=== PATIENT | female | born 1980 | race Caucasian/White ===

== ENCOUNTER 2018-10-21 00:47 | Emergency (ER) | payer OTHER ==
--- NOTE | 2018-10-21 00:57 | PDOC ---
History of Present Illness - General Chief Complaint: Diarrhea Stated Complaint: DIARRHEA Time Seen by Provider: 10/21/18 00:49 - History of Present Illness Initial Comments: This 38-year-old woman with a history of hypertension but no other significant medical issues presents with 10 day history of watery stools. Patient and her sister were visiting [place] until about 10 days ago. As they were leaving [place], and she began to have watery brown stool which continues intermittently. The patient had been eating and drinking in many different establishments in [place] . She denies blood or mucus in the stools. She has not had vomiting or fever/chills. She states that her abdomen is "sore" but she has not had severe abdominal pain during this illness. She states that intermittently in the last 10 days, her stools have begun to "thicken up" but as soon as she begins eating food, diarrhea begins again. No history of previous chronic diarrhea or other digestive issues. Her sister also had similar symptoms but diarrhea has largely resolved. Past medical history significant for hypertension that has been difficult to control. Patient states that she is compliant with her current dosage of amlodipine. She states that she is due for follow-up evaluation with her PMD for recheck of her BP and possible change in medication Past History - Past Medical History Allergies/Adverse Reactions: Allergies Allergy/AdvReac Type Severity Reaction Status Date / Time No Known Allergies Allergy Verified 04/11/15 20:59 Home Medications: Ambulatory Orders Amlodipine Besylate [Norvasc -] 10 mg PO DAILY 04/11/15 Azithromycin [Zithromax Tri-Jj (3 DAYS) -] 500 mg PO DAILY #3 tablet 10/21/18 HTN: Yes - Immunization History Immunization Up to Date: Yes - Suicide/Smoking/Psychosocial Hx Smoking Status: No Smoking History: Never smoked Number of Cigarettes Smoked Daily: 0 Hx Alcohol Use: Yes (social) Substance Use Type: None Review of Systems - Review of Systems Able to Perform ROS?: Yes Comments:: 12 point review of systems is negative except for what is noted in the history of present illness *Physical Exam - Physical Exam Comments: GENERAL: Adult female, alert and oriented 3, in no acute distress HEAD: Normal with no signs of trauma. EYES: PERRLA, EOMI, sclera anicteric, conjunctiva clear. ENT: Ears normal, nares patent, oropharynx clear without exudates. Dry mucous membranes. NECK: Normal range of motion, supple without lymphadenopathy, JVD, or masses. LUNGS: Breath sounds equal, clear to auscultation bilaterally. No wheezes, and no crackles. HEART:Regular rate and rhythm, normal S1 and S2 without murmur, rub or gallop. ABDOMEN:.normal bowel sounds . Mild generalized tenderness. No guarding or rebound.No masses No distention. EXTREMITIES: Normal range of motion, no edema. No clubbing or cyanosis. No erythema, or tenderness. NEUROLOGICAL: Cranial nerves II through XII grossly intact. Normal speech. No focal neurological deficits. MUSCULOSKELETAL: Back non-tender to palpation, no CVA tenderness SKIN: Warm, Dry, normal turgor, no rashes or lesions noted. Progress Note - Progress Note Progress Note: This 38-year-old woman presents with 10 day history of watery stools; notable and history is visit to [place] just prior to onset of current illness. No blood/mucus in stools and patient does not appear toxic. Exam notable for dry mucous membranes but patient is alert and in no acute distress. Abdomen is mildly tender throughout without evidence of rebound or guarding. History consistent with travelers diarrhea. Patient will be started on azithromycin 500 mg daily for 3 days. First dose given here in the emergency room. Patient also will continue drinking plenty of clear liquids that she has been trying to do. Also, patient has not been using Imodium/Kaopectate or other OTC antidiarrheal medication. She has been advised to use this along with the antibiotics. Patient should refrain from returning to a full diet until stools are firm for a few days. She should follow-up with her general doctor for follow-up on the diarrhea as well as her blood pressure control. She should return to the ER if she has high fever/increasing abdominal pain/ lateral mucus in her stools *DC/Admit/Observation/Transfer Diagnosis at time of Disposition: Diarrhea Qualifiers: Diarrhea type: presumed infectious Qualified Code(s): R19.7 - Diarrhea, unspecified - Discharge Dispostion Disposition: HOME Condition at time of disposition: Stable - Prescriptions Prescriptions: Azithromycin [Zithromax Tri-Jj (3 DAYS) -] 500 mg PO DAILY #3 tablet - Referrals - Patient Instructions Printed Discharge Instructions: Traveler's Diarrhea Additional Instructions: Continue drinking plenty of fluids Azithromycin 500 mg daily for the next 3 days You can use Imodium/Kaopectate/Pepto-Bismol as needed Continue limited diet (soup initially then simple starchy foods as tolerated) Follow-up with your doctor as scheduled Return to ER if you have blood in your stool/severe abdominal pain/fever - Post Discharge Activity
[2018-10-21 00:58] VITALS: BP 169/110; PULSE 67; TEMP 98.4; BMI 31.1
[2018-10-21] MEDS ORDERED: AZITHROMYCIN 500 MG TABLET PO ONE (01:45)
[2018-10-21] MEDS ORDERED: AZITHROMYCIN 500 MG TABLET ONE (01:50)
== END 2018-10-21 02:03 | disposition home or self-care (01) ==
LOC: FER 00:47
DX: R19.7 Diarrhea, unspecified (principal); I10 Essential (primary) hypertension
CPT/HCPCS: 99281-25